=== PATIENT | female | born 1940 | race Caucasian/White ===

== ENCOUNTER 2017-08-14 11:14 | Outpatient (CLI) | payer MEDICARE, BC | END 2017-08-14 11:15 | disposition home or self-care (01) | LOC: BICMAMMO 11:14 | PROVIDERS: ATTEND Family Medicine | DX: Z12.31 Encounter for screening mammogram for malignant neoplasm of breast (principal); R92.1 Mammographic calcification found on diagnostic imaging of breast; Z80.3 Family history of malignant neoplasm of breast | CPT/HCPCS: 77063; 77067 ==

== ENCOUNTER 2018-06-21 10:35 | Outpatient (CLI) | payer MEDICARE, BC ==
--- NOTE | 2018-06-21 14:02 | MRI ---
MRI LUMBAR SPINE WITHOUT CONTRAST: Multiplanar, multisequential imaging of the lumbar spine obtained. INDICATION: Spinal stenosis. Low back pain. COMPARISON: Comparison is made to MRI lumbar spine dated 09/28/2015. FINDINGS: Scoliotic curvature of the lumbar spine again noted with convexity to the left. Moderate degenerativ e changes again noted with osteophytes from the lumbar vertebrae. There are degenerative disk change s at all levels with loss of disk space, most prominent at L4-5 level, unchanged in appearance when c ompared to the prior study in 2016. At T12-L1, mild diffuse disk bulge is again seen. This flattens the anterior thecal sac and is combi malgorzata with facet hypertrophy resulting in mild central canal stenosis. Mild right foraminal narrowing due to the asymmetric disk bulge and scoliotic curvature. At L1-2, broad-based disk bulge flattens the anterior thecal sac. Moderate facet hypertrophy. No si gnificant central canal stenosis. Mild right foraminal narrowing. Facet hypertrophy. At L2-3, Loss of disk space. Mild diffuse disk bulge. Prominent facet hypertrophy. Mild to moderat e central canal stenosis. Right foraminal narrowing due to the scoliotic curvature and hypertrophic change. At L3-4, diffuse disk bulge flattens the thecal sac. Facet hypertrophy. Moderate central canal sten osis. Right foraminal stenosis secondary to scoliosis and hypertrophic change with asymmetric disk b ulge. At L4-5, broad-based disk bulge. Facet hypertrophy. Moderate to severe central canal stenosis. Lef t foraminal stenosis secondary to asymmetric disk bulge and hypertrophic change. At L5-S1: Diffuse disk bulge. Prominent facet hypertrophy. Mild central canal stenosis. Left fora yadi stenosis due to disk-osteophyte complex projecting to the left and the prominent facet hypertro phy on the left. IMPRESSION: Scoliotic curvature of the lumbar spine with convexity to the left with moderate degenerative changes throughout the lumbar spine as described. There are areas of central canal and foraminal stenosis a s noted above. Findings do not appear significantly changed when compared to the 2016 study. POS: [facility]
== END 2018-06-21 10:36 | disposition home or self-care (01) ==
LOC: BICMRI 10:35
PROVIDERS: ATTEND Anesthesiology Pain Medicine
DX: M48.062 Spinal stenosis, lumbar region with neurogenic claudication (principal); M46.1 Sacroiliitis, not elsewhere classified; M47.816 Spondylosis without myelopathy or radiculopathy, lumbar region; M48.07 Spinal stenosis, lumbosacral region; M41.9 Scoliosis, unspecified
CPT/HCPCS: 72148

== ENCOUNTER 2018-08-16 11:02 | Outpatient (CLI) | payer MEDICARE, BC ==
--- NOTE | 2018-08-16 11:29 | MMO ---
Bilateral MAMMO Bilat Screen [facility]. CLINICAL HISTORY: Patient is 78 years old and is seen for screening. The patient has no personal history of cancer. VIEWS: The views performed were: bilateral craniocaudal with tomosynthesis and bilateral mediolateral oblique with tomosynthesis. FILMS COMPARED: The present examination has been compared to prior imaging studies performed at [facility] on 07/07/2014, 08/07/2015, 08/12/2016 and 08/14/2017. MAMMOGRAM FINDINGS: The breasts are almost entirely fat. There are stable benign appearing calcifications seen in both breasts. There are no suspicious masses, suspicious calcifications, or new areas of architectural distortion. IMPRESSION: THERE IS NO MAMMOGRAPHIC EVIDENCE OF MALIGNANCY. A ROUTINE FOLLOW-UP MAMMOGRAM IN 1 YEAR IS RECOMMENDED. THE RESULTS OF THIS EXAM WERE SENT TO THE PATIENT. ACR BI-RADS Category 2 - Benign finding MAMMOGRAPHY NOTE: 1. A negative mammogram report should not delay a biopsy if a dominant of clinically suspicious mass is present. 2. Approximately 10% to 15% of breast cancers are not detected by mammography. 3. Adenosis and dense breasts may obscure an underlying neoplasm.
== END 2018-08-16 11:03 | disposition home or self-care (01) ==
LOC: BICMAMMO 11:02
PROVIDERS: ATTEND Family Medicine
DX: Z12.31 Encounter for screening mammogram for malignant neoplasm of breast (principal)
CPT/HCPCS: 77063; 77067

== ENCOUNTER 2019-09-22 14:01 | Outpatient (CLI) | payer MEDICARE, BC ==
--- NOTE | 2019-09-22 14:57 | MMO ---
Bilateral MAMMO Bilat Diag [facility]. CLINICAL HISTORY: Patient is 79 years old and is seen for diagnostic exam. The patient has no family history of breast cancer. The patient has no personal history of cancer. VIEWS: The views performed were: bilateral craniocaudal with tomosynthesis; bilateral mediolateral oblique with tomosynthesis; and bilateral mediolateral with tomosynthesis. FILMS COMPARED: The present examination has been compared to prior imaging studies performed at [facility] on 08/07/2015, 08/12/2016, 08/14/2017 and 08/16/2018. This study has been interpreted with the assistance of computer-aided detection. MAMMOGRAM FINDINGS: The breasts are almost entirely fat. There are stable benign appearing calcifications seen in both breasts. There are no suspicious masses, suspicious calcifications, or new areas of architectural distortion. IMPRESSION: THERE IS NO MAMMOGRAPHIC EVIDENCE OF MALIGNANCY. NO PALPABLE FINDINGS AT THIS TIME. A ROUTINE FOLLOW-UP MAMMOGRAM IN 1 YEAR IS RECOMMENDED. THE RESULTS OF THIS EXAM WERE SENT TO THE PATIENT. ACR BI-RADS Category 2 - Benign finding MAMMOGRAPHY NOTE: 1. A negative mammogram report should not delay a biopsy if a dominant of clinically suspicious mass is present. 2. Approximately 10% to 15% of breast cancers are not detected by mammography. 3. Adenosis and dense breasts may obscure an underlying neoplasm. Reported by: ZUHAIR DÍAZ MD Electonically Signed: [id number]
== END 2019-09-22 14:02 | disposition home or self-care (01) ==
LOC: BICMAMMO 14:01
PROVIDERS: ATTEND Family Medicine
DX: N64.4 Mastodynia (principal)
CPT/HCPCS: 77066; G0279

== ENCOUNTER 2020-12-14 10:53 | Outpatient (CLI) | payer MEDICARE, BC | END 2020-12-14 10:54 | disposition home or self-care (01) | LOC: BICMAMMO 10:53 | PROVIDERS: ATTEND Family Medicine | DX: Z12.31 Encounter for screening mammogram for malignant neoplasm of breast (principal) | CPT/HCPCS: 77063; 77067 ==

== ENCOUNTER 2022-04-28 10:53 | Outpatient (CLI) | payer MEDICARE | END 2022-04-28 10:54 | disposition home or self-care (01) | LOC: BICRAD 10:53 | PROVIDERS: ATTEND Anesthesiology Pain Medicine | DX: M25.511 Pain in right shoulder (principal) ==

== ENCOUNTER 2022-10-21 07:04 | Observation (INO) | payer MEDICARE ==
[2022-10-21] MEDS ORDERED: fentaNYL 50 mcg/mL 1 mL Vial ONE (08:13)
[2022-10-21] MEDS ORDERED: Ropivacaine 0.5% HCl/PF (150 MG/30 ML VIAL) ONE (08:13)
[2022-10-21] MEDS ORDERED: Ropivacaine 0.2% HCl/PF 20 ML ONE (08:13)
[2022-10-21] MEDS ORDERED: Vancomycin 1 GM/200 ML (FROZEN) BAG ONE (08:18)
[2022-10-21] MEDS ORDERED: Sodium Chloride 0.9% 100 ML ONE ×2 (08:18→08:53)
[2022-10-21] MEDS ORDERED: Tranexamic Acid 1,000 MG/10 ML VIAL ONE (08:18)
[2022-10-21] MEDS ORDERED: Dexamethasone 20 MG/5 ML VIAL ONE (08:49)
[2022-10-21] MEDS ORDERED: PROPOFOL 200 MG/20 ML VIAL ONE (08:49)
[2022-10-21] MEDS ORDERED: Lidocaine 1% PF 5 ML VIAL ONE (08:49)
[2022-10-21] MEDS ORDERED: Rocuronium Bromide 10 MG/ML (10ML VIAL) ONE (08:49)
[2022-10-21] MEDS ORDERED: ePHEDrine Sulfate 50 MG/10 ML VIAL ONE (08:49)
[2022-10-21] MEDS ORDERED: Ondansetron PF 4 MG/2 ML Vial ONE (08:49)
[2022-10-21] MEDS ORDERED: Ketorolac Tromethamine 30 MG/ML VIAL ONE (08:49)
[2022-10-21] MEDS ORDERED: HYDROcodone/Acetaminophen 7.5/325 mg Tablet PO PRN (08:50)
[2022-10-21] MEDS ORDERED: fentaNYL 50 mcg/mL 1 mL Vial SLOW IVP PRN (08:50)
[2022-10-21] MEDS ORDERED: CEFAZOLIN 2 GM VIAL ONE (08:53)
[2022-10-21] MEDS ORDERED: Promethazine HCl 25 MG/ML VIAL IM PRN (09:00)
[2022-10-21] MEDS ORDERED: Ondansetron PF 4 MG/2 ML Vial IVP PRN (09:00)
[2022-10-21] MEDS ORDERED: Zolpidem Tartrate 5 MG TAB PO PRN (09:00)
[2022-10-21] MEDS ORDERED: traMADol HCl 50 MG TAB PO PRN ×2 (09:00)
[2022-10-21] MEDS ORDERED: Ropivacaine 0.2% 550 ML 550 ML NERVE BLCK SCH (09:00)
[2022-10-21] MEDS ORDERED: SUGAMMADEX SODIUM 200 MG/2 ML VIAL ONE (09:04)
[2022-10-21] MEDS ORDERED: HYDROcodone/Acetaminophen 10/325 mg Tablet PO PRN (09:27)
[2022-10-21] MEDS: Lactated Ringer's 1,000 ML IV SCH ×2 (12:54→21:42)
[2022-10-21] MEDS: Ketorolac Tromethamine 30 MG/ML VIAL IVP SCH ×3 (13:10→23:16)
[2022-10-21 13:23] VITALS: BMI 25.4
[2022-10-21] MEDS ORDERED: CEFAZOLIN 2 GM in Sodium Chloride 0.9% 100 ML IVPB SCH (14:00)
[2022-10-21] MEDS: CEFAZOLIN 2 GM in Sodium Chloride 0.9% 100 ML IVPB SCH (18:13)
[2022-10-21] MEDS ORDERED: diphenhydrAMINE 25 MG CAP PO SCH (21:00)
[2022-10-21] MEDS ORDERED: Atorvastatin Calcium 10 MG TAB PO SCH (21:00)
[2022-10-21] MEDS ORDERED: Simvastatin 20 MG TAB PO SCH (21:00)
[2022-10-21] MEDS: Gabapentin 300 MG CAP PO SCH (21:21)
[2022-10-21] MEDS: Triamcinolone 0.1% Cream 15 GM TUBE TOP SCH (21:23)
[2022-10-22] MEDS: CEFAZOLIN 2 GM in Sodium Chloride 0.9% 100 ML IVPB SCH (02:25)
[2022-10-22] MEDS: HYDROcodone/Acetaminophen 7.5/325 mg Tablet PO PRN ×2 (04:06→14:33)
[2022-10-22] MEDS: Ketorolac Tromethamine 30 MG/ML VIAL IVP SCH ×2 (06:16→12:43)
[2022-10-22] MEDS ORDERED: Levothyroxine Sodium 50 MCG TAB PO SCH (09:00)
[2022-10-22] MEDS ORDERED: Losartan 25 MG TAB PO SCH (09:00)
[2022-10-22] MEDS ORDERED: IBANDRONATE SODIUM 150 MG PO SCH (09:00)
[2022-10-22] MEDS ORDERED: Raloxifene 60 MG TAB PO SCH (09:00)
[2022-10-22] MEDS ORDERED: Non-Formulary Item 1 EACH (Ibandronate Sodium [Ibandronate Sodium] 150 MG Tablet) PO SCH (09:00)
[2022-10-22] MEDS ORDERED: CeleCOXIB 100 MG CAP PO SCH (09:00)
[2022-10-22] MEDS ORDERED: Non-Formulary Item 1 EACH (Celecoxib [Celecoxib] 200 MG Capsule) PO SCH (09:00)
[2022-10-22] MEDS ORDERED: Non-Formulary Item 1 EACH (Esomeprazole Magnesium [Nexium 24hr] 20 MG Capsule.Dr) PO SCH (09:00)
[2022-10-22] MEDS ORDERED: Sertraline 25 MG TAB PO SCH (09:00)
[2022-10-22 09:09] VITALS: TEMP 98.1
[2022-10-22] MEDS: Gabapentin 300 MG CAP PO SCH (10:28)
[2022-10-22] MEDS: Triamcinolone 0.1% Cream 15 GM TUBE TOP SCH (10:29)
[2022-10-22 14:34] VITALS: BP 126/73
== END 2022-10-22 14:50 | disposition home or self-care (01) ==
LOC: SDC 07:04 → SURG B 09:27
PROVIDERS: ADMIT Orthopaedic Surgery; ATTEND Orthopaedic Surgery
PROC: 0RRJ00Z Replacement of Right Shoulder Joint with Reverse Ball and Socket Synthetic Substitute, Open Approach (ICD-10-PCS; principal; 2022-10-21)
PROC: 0LS30ZZ Reposition Right Upper Arm Tendon, Open Approach (ICD-10-PCS; 2022-10-21)
DX: M19.011 Primary osteoarthritis, right shoulder (principal); M75.21 Bicipital tendinitis, right shoulder; I10 Essential (primary) hypertension; M10.9 Gout, unspecified; Z79.891 Long term (current) use of opiate analgesic; Z79.899 Other long term (current) drug therapy; Z90.710 Acquired absence of both cervix and uterus; Z90.89 Acquired absence of other organs
CPT/HCPCS: 23430; 23472; 97110; 97116 ×2; 97530; 97535; A4306; C1713 ×5; C1776 ×3; J3010; J3370; J1100; J1885; J2405; J2704; J2795; J3490; J7120

== ENCOUNTER 2023-02-13 10:58 | Outpatient (CLI) | payer MEDICARE | END 2023-02-13 10:59 | disposition home or self-care (01) | LOC: BICMAMMO 10:58 | PROVIDERS: ATTEND Internal Medicine | DX: Z12.31 Encounter for screening mammogram for malignant neoplasm of breast (principal) | CPT/HCPCS: 77063; 77067 ==

== ENCOUNTER 2023-08-27 15:04 | Outpatient (CLI) | payer MEDICARE | END 2023-08-27 15:05 | disposition home or self-care (01) | LOC: BICMRI 15:04 | PROVIDERS: ATTEND Nurse Practitioner Family | DX: M48.02 Spinal stenosis, cervical region (principal); M50.30 Other cervical disc degeneration, unspecified cervical region; M46.02 Spinal enthesopathy, cervical region; S12.000A Unspecified displaced fracture of first cervical vertebra, initial encounter for closed fracture | CPT/HCPCS: 72141 ==

== ENCOUNTER 2024-02-16 11:47 | Outpatient (CLI) | payer MEDICARE | END 2024-02-16 11:48 | disposition home or self-care (01) | LOC: BICMAMMO 11:47 | PROVIDERS: ATTEND Family Medicine | DX: Z12.31 Encounter for screening mammogram for malignant neoplasm of breast (principal) | CPT/HCPCS: 77063; 77067 ==

== ENCOUNTER 2024-09-27 13:11 | Outpatient (CLI) | payer MEDICARE | END 2024-09-27 13:12 | disposition home or self-care (01) | LOC: BICMAMMO 13:11 | PROVIDERS: ATTEND Family Medicine | DX: M81.0 Age-related osteoporosis without current pathological fracture (principal); M85.859 Other specified disorders of bone density and structure, unspecified thigh | CPT/HCPCS: 77080 ==

== ENCOUNTER 2025-02-17 10:26 | Outpatient (CLI) | payer MEDICARE | END 2025-02-17 10:27 | disposition home or self-care (01) | LOC: BICMAMMO 10:26 | PROVIDERS: ATTEND Family Medicine | DX: Z12.31 Encounter for screening mammogram for malignant neoplasm of breast (principal) | CPT/HCPCS: 77063; 77067 ==